=== PATIENT | male | born 1970 | race Caucasian/White ===

== ENCOUNTER 2024-02-16 16:15 | Outpatient (RCR) | payer BC, SELFPAY | END 2024-06-15 23:59 | disposition home or self-care (01) | PROVIDERS: PCP Family Medicine; Visit Provider Orthopaedic Surgery | DX: M75.82 Other shoulder lesions, left shoulder (principal); M75.42 Impingement syndrome of left shoulder; M25.512 Pain in left shoulder; R53.1 Weakness; Z74.09 Other reduced mobility; Z51.89 Encounter for other specified aftercare | CPT/HCPCS: 97110; 97162 ==